=== PATIENT | male | born 1995 | race Caucasian/White ===

== ENCOUNTER 2017-11-02 23:14 | Emergency (ER) | payer SELFPAY ==
[~2017-11-02] VITALS: Ht 185.4 cm; Wt 97.7 kg
[2017-11-02 23:20] VITALS: Ht 185.4 cm; Wt 97.7 kg
[2017-11-03] MEDS ORDERED: ULTRAM50 MG PO (01:26)
[2017-11-03 01:48] VITALS: BP 115/62
== END 2017-11-03 01:45 | disposition home or self-care (01) ==
LOC: D.ER 23:14
DX: S62.92XA Unspecified fracture of left hand, initial encounter for closed fracture (principal); V43.52XA Car driver injured in collision with other type car in traffic accident, initial encounter; Y93.89 Activity, other specified; Y92.410 Unspecified street and highway as the place of occurrence of the external cause